=== PATIENT | male | born 1995 | race Caucasian/White ===

== ENCOUNTER 2024-10-25 06:41 | Emergency (ER) | payer MEDICAID ==
[~2024-10-25] VITALS: Ht 175.3 cm; Wt 69.0 kg
[2024-10-25 06:45] VITALS: TEMP 96.8
[2024-10-25] MEDS: normal saline 1000ML IV soln IVB ONE (07:00)
[2024-10-25] MEDS ORDERED: haloperidol lactate 5mg/ml inj IVH ONE (07:10)
[2024-10-25 07:16] LABS: BASOPHILS % (AUTO) 0.4 % (0-1); EOSINOPHILS % (AUTO) 0.1 % (0-6); HEMOGLOBIN 16.8 g/dl (14.0-17.9); LYMPHOCYTES # (AUTO) 1.5 X10'3 (1.1-4.8); MEAN CORPUSCULAR HEMOGLOBIN 28.6 PG (27.0-31.0); MEAN CORPUSCULAR VOLUME 81.8 FL (78-98); MEAN PLATELET VOLUME 7.1 FL (7.4-10.4); MONOCYTES % (AUTO) 13.5 % (2-12); NEUTROPHILS # (AUTO) 5.2 X10'3 (1.8-7.7); PLATELET COUNT 545 X10'3 (140-440); RED BLOOD COUNT 5.87 X10'6 (4.70-6.10); WHITE BLOOD COUNT 7.7 X10'3 (4.5-11.0)
[2024-10-25 07:51] LABS: ETHANOL < 10 MG/DL (<10); LIPASE 146 U/L (16-77); MAGNESIUM 3.1 MG/DL (1.5-2.4)
[2024-10-25 08:35] LABS: ALANINE AMINOTRANSFERASE 29 U/L (12-78); ALBUMIN 4.7 G/DL (3.4-5.0); ALBUMIN/GLOBULIN RATIO 1.1 (1.1-1.5); ALKALINE PHOSPHATASE 68 IU/L (46-116); ANION GAP 15 (8-16); ASPARTATE AMINO TRANSFERASE 15 U/L (10-37); BILIRUBIN,TOTAL 1.6 MG/DL (0.1-1.0); BLOOD UREA NITROGEN 31 MG/DL (7-18); BUN/CREATININE RATIO 28.2 (10.0-20.0); CALCIUM 9.4 MG/DL (8.5-10.1); CHLORIDE 94 MMOL/L (99-107); GLUCOSE 120 MG/DL (70-104); POTASSIUM 3.8 MMOL/L (3.5-5.1); SODIUM 133 MMOL/L (135-145); TOTAL CARBON DIOXIDE 24.2 MMOL/L (24-32); TOTAL PROTEIN 8.8 G/DL (6.4-8.2); eCRCL 96 ML/MIN; eGFR 79 ML/MIN
[2024-10-25] MEDS ORDERED: HYDROmorphone 1 mg/ml syringe IV ONE (08:50)
[2024-10-25] MEDS: LORazepam 2 mg/ml vial IV ONE (09:00)
[2024-10-25] MEDS: haloperidol lactate 5mg/ml inj IM ONE ×2 (09:54→10:44)
[2024-10-25] MEDS ORDERED: ONDA-243 PO (10:12)
[2024-10-25] MEDS ORDERED: DICY10CA88 PO (10:12)
[2024-10-25 10:21] LABS: BILIRUBIN,URINE NEGATIVE (Neg); CLARITY,URINE CLEAR (Clear); COLOR,URINE YELLOW (Yellow); GLUCOSE, URINE NEGATIVE (Neg); KETONES,URINE 40 mg/dl (Neg); LEUKOCYTE ESTERASE ,URINE NEGATIVE (Neg); NITRITES, URINE NEGATIVE (Neg); OCCULT BLOOD,URINE NEGATIVE (Neg); PH,URINE 7.5 (4.8-8.0); PROTEIN,URINE NEGATIVE (Neg); UROBILINOGEN,URINE 0.2 E.U/dL (0.2-1.0)
[2024-10-25 10:24] LABS: UA COLLECTION TYPE CLN CATCH MIDSTREAM; URINE HCG NEGATIVE
[2024-10-25 10:39] LABS: URINE AMPHETAMINE SCREEN NEGATIVE (Neg); URINE BARBITUATE SCREEN NEGATIVE (Neg); URINE BENZODIAZEPINES SCREEN NEGATIVE (Neg); URINE CANNABINOID SCREEN POSITIVE (Neg); URINE COCAINE SCREEN NEGATIVE (Neg); URINE METHADONE SCREEN NEGATIVE (Neg); URINE OPIATE SCREEN NEGATIVE (Neg); URINE PHENCYCLIDINE SCREEN NEGATIVE (Neg)
[2024-10-25] MEDS: dicyclomine 10 MG capsule PO ONE (10:46)
[2024-10-25 11:23] VITALS: BP 117/79; PULSE 98; RESP 18; O2SAT 98
== END 2024-10-25 11:25 | disposition home or self-care (01) ==
LOC: ER 06:42 → EDSEX 06:42 → ER 11:25
DX: A08.4 Viral intestinal infection, unspecified (principal); E86.0 Dehydration; J45.909 Unspecified asthma, uncomplicated; F12.90 Cannabis use, unspecified, uncomplicated
CPT/HCPCS: 36415; 80053; 80305; 80320; 81003; 81025; 83690; 83735; 85025; 96361; 96372; 96374; 99284; J1630; J2060; J7030; 99283

== ENCOUNTER 2025-02-22 06:06 | Emergency (ER) | payer MEDICAID, OTHER ==
[~2025-02-22] VITALS: Ht 175.3 cm; Wt 71.4 kg
[~2025-02-22 06:06] MED LIST: ONDA-243 PO
--- NOTE | 2025-02-22 07:08 | Physician Documentation ---
History of Present Illness ~ Chief Complaint: Nausea Stated Complaint: VOMITTING Time Seen by MD: 06:36 Mode of Arrival: POV HPI 29-year-old male presenting for continuous intractable nausea and vomiting that has been ongoing for the past four days. Patient states that he has had about 10-15 episodes of nonbloody emesis every day during this time. He also states that his abdomen has been very sore from all the vomiting. He denies any diarrhea but states that subjectively he has felt very cold and at times hot. Denies any constipation, chest pain or any other associated symptoms. He states that this is the 2nd time something like this has occurred. He had similar issues back in October that was treated and resolved that for several days. He reports that he smokes marijuana every day usually at the end of the day after work. He denies any exposure to anyone who has been sick but states that he does work as a bench grinder on the weekend so that he is unsure if they were sick people at the bar. Medication Reconciliation Allergies: Coded Allergies: No Known Allergies (Unverified , 02/22/25) Scheduled PRN ONDANSETRON ODT 4mg tablet (Ondansetron Odt), 1 TAB PO Q6H PRN PRN for nause a/vomiting Past Medical History Past Medical History: Asthma Past Surgical History: no surgical history Alcohol Use: Occasionally Drug Use: marijuana Review of Systems All Other Systems at this time: Reviewed and Negative Physical Exam Vital Signs: Temperature: 98.1, Source: Temporal, Heart Rate: 99, Respiratory Rate: 15, BP: 155/112, Pulse Oximetry: 97, Weight: 71.400 Oxygen Flow Rate: 0 Physical Exam I have reviewed the triage vitals. CONST: Well developed and well nourished. In no acute distress HENT: Head Atraumatic EYES: Pupils are equal, round and reactive to light. Normal conjunctiva NECK: Normal range of motion. Supple. CARDIO: Normal rate and regular rhythm. No murmurs, rubs, or gallops. S1, S2. PULM/CHEST: No respiratory distress. Lungs clear to auscultation. No wheeze ABD: Soft, minimally tender to palpation over the epigastrium. Nondistended. Bowel sounds normal. No guarding. : Exam deferred MSK: No edema. No deformity. NEURO: Alert and oriented to person, place and time. Moving all extremities SKIN: Warm and dry. PSYCH: Normal mood and affect. Good eye contact. Progress Results/Orders Results/Orders Orders - BRIDGER XIONG MD Ct Abdomen Pelvis (02/22/25 07:41) Completed Orders - BRIDGER XIONG MD Cbc/Diff (02/22/25 07:05) Lipase (02/22/25 07:05) CMP (02/22/25 07:05) Normal Saline 1000ml (Sodium Chloride 10 (02/22/25 07:05) Ondansetron Inj. (Zofran 4mg/2ml Vial) (02/22/25 07:05) Ct Abdomen Pelvis (02/22/25 07:41) Ua W/Microscopic, Cult If Ind (02/22/25 07:46) Normal Saline 1000ml (Sodium Chloride 10 (02/22/25 09:05) Metoclopramide Inj (Reglan Inj) (02/22/25 09:05) Medications Received in ER Medications (Trade) Dose Ordered Sig/Deandre Route PRN Reason Start Time Stop Time Status Last Admin Dose Admin Sodium Chloride 1,000 ml @ 1,000 mls/hr ONCE ONCE IV 02/22/25 07:05 02/22/25 08:04 DC 02/22/25 07:48 1,000 MLS/HR (Zofran 4mg/2ml vial) 4 mg ONCE ONCE IV 02/22/25 07:05 02/22/25 07:07 DC 02/22/25 07:48 4 MG Sodium Chloride 1,000 ml @ 1,000 mls/hr ONCE ONCE IV 02/22/25 09:05 02/22/25 10:04 DC 02/22/25 09:11 1,000 MLS/HR (Reglan inj) 10 mg ONCE ONCE IV 02/22/25 09:05 02/22/25 09:06 DC 02/22/25 09:11 10 MG Vital Signs 02/22/25 02/22/25 02/22/25 06:11 06:44 07:53 Temp 98.1 98.1 Pulse 99 77 Resp 16 15 18 B/P (MAP) 155/112 159/104 (122) Pulse Ox 97 99 O2 Flow Rate 0 0 Laboratory Tests Test 02/22/25 07:12 5/1/25 07:46 White Blood Count 10.4 Red Blood Count 5.73 Hemoglobin 16.3 Hematocrit 47.4 Mean Corpuscular Volume 82.7 Mean Corpuscular Hemoglobin 28.5 Mean Corpuscular Hemoglobin Concent 34.5 Red Cell Distribution Width 13.1 Platelet Count 438 Mean Platelet Volume 7.1 L Neutrophils (%) (Auto) 69.8 Lymphocytes (%) (Auto) 20.8 L Monocytes (%) (Auto) 8.7 Eosinophils (%) (Auto) 0.5 Basophils (%) (Auto) 0.2 Neutrophils # (Auto) 7.3 Lymphocytes # (Auto) 2.2 Monocytes # (Auto) 0.9 Eosinophils # (Auto) 0.1 Basophils # (Auto) 0.0 CBC Comment Sodium Level 140 Potassium Level 3.9 Chloride Level 102 Carbon Dioxide Level 24.5 Anion Gap 14 Blood Urea Nitrogen 18 Creatinine 0.96 Estimated GFR/1.73 m2 > 90 BUN/Creatinine Ratio 18.8 Glucose Level 140 H Calcium Level 9.6 Total Bilirubin 0.6 Aspartate Amino Transf (AST/SGOT) 28 Alanine Aminotransferase (ALT/SGPT) 55 Alkaline Phosphatase 76 Total Protein 8.5 H Albumin 5.2 H Globulin 3.3 Albumin/Globulin Ratio 1.6 H Lipase 19 Chemistry Comments Urine Specimen Description Non-specified Urine Color Yellow Urine Clarity Clear Urine pH 7.0 Urine Specific [place] 1.020 Urine Protein 100 H Urine Glucose (UA) Negative Urine Ketones 15 H Urine Occult Blood Trace-intact Urine Nitrite Negative Urine Bilirubin Negative Urine Urobilinogen 0.2 Urine Leukocyte Esterase Negative Urine RBC 3-10 Urine WBC 0-4 Urine Squamous Epithelial Cells None seen Urine Bacteria None seen Urine Mucus Few Urine Culture Indicated Not ind Volume Urine Centrifuged 10 ml Urine Comment EKG/XRAY/CT/US/VASC/MRI CT : Impression TECHNIQUE: Axial CT images of the abdomen and pelvis were obtained without IV contrast. Coronal and sagittal reformatted images were obtained, reviewed, and stored. Evaluation of the parenchymal organs is limited without IV contrast. Evaluation of the bowel and mesentery is limited without oral contrast. All CT scans at this medical facility are performed using dose modulation techniques as appropriate to a performed exam including the following: Automated exposure control was utilized; adjustment of the MA and/or KV according to patient size; and use of iterative reconstruction technique. CTDIvol = 14.71 mGy DLP = 663.39 mGy-cm COMPARISON: None FINDINGS: Lung bases: Lung bases are clear. Liver: Grossly unremarkable in its noncontrast enhanced appearance. No abnormal density or focal lesion identified. Biliary: No calcified gallstones or biliary ductal dilatation. Spleen: Unremarkable. Pancreas: Grossly unremarkable in its noncontrast enhanced appearance. Adrenal glands: Unremarkable. No mass. Kidneys: No hydronephrosis. No renal or ureteral calculi. Aorta/Vascular: No aneurysm or significant calcification. Retroperitoneum: No mass or lymphadenopathy. Bowel/mesentery: Nonspecific nondilated fluid-filled small bowel loops. No small bowel obstruction. Appendix is visualized and appears unremarkable. No free air or free fluid. Small subcentimeter mesenteric lymph nodes in the right lower quadrant. Pelvic organs: Grossly unremarkable. Bladder: Grossly unremarkable. Abdominal wall: No mass or hernia. Bones: No acute fracture or suspicious intraosseous lesion. IMPRESSION: 1. Normal-appearing appendix. 2. Nonspecific nondilated fluid-filled small bowel loops. Findings may be seen with ileus or enteritis in the appropriate clinical setting. No small bowel obstruction. 3. Small subcentimeter mesenteric lymph nodes in the right lower quadrant, may be 4. Reactive or seen with mesenteric adenitis in the appropriate clinical setting. Additional nonacute findings as described above. Electronically Signed by:BRENT CHILEL DO Date & Time: 02/22/25 0812 Medical Decision Making Additional Comments 29-year-old male presenting with gastroenteritis. Symptoms are likely viral in nature with some possibility of superimposed cannabis induced hyperemesis. The patient was medicated with 2 L of IV normal saline as well as 4 mg IV Zofran and 10 mg of IV Reglan with good improvement of symptoms. CT of the abdomen and pelvis showed no bowel obstruction but did indicate likely enteritis. Patient was markedly improved after medication was given. I advised the patient to cut back on his marijuana use. Also advised him to drink plenty of fluids. He is safe and stable for discharge home at this time as he looks well and his vitals are normal. I will prescribe him Zofran to take as needed for the nausea. Follow up with PCP and return to the ED with any acutely worsening symptoms. Departure Disposition: 01 HOME / SELF CARE / HOMELESS Impression: Primary Impression: Viral gastroenteritis Condition: Improved Discharge Instructions: Nausea and Vomiting, Adult, [id number] Additional Instructions: Take medication as prescribed for nausea as needed. Drink plenty of fluids and monitor symptoms for improvement and resolution. Cut back on marijuana use. Follow up with PCP and return to the ED with any acutely worsening symptoms. Referrals: NO PRIMARY CARE PROVIDER (PCP) BRIDGER XIONG MD February 22, 2025 07:08
[2025-02-22 07:36] LABS: BASOPHILS % (AUTO) 0.2 % (0-1); EOSINOPHILS # (AUTO) 0.1 X10'3 (0-0.9); EOSINOPHILS % (AUTO) 0.5 % (0-6); HEMATOCRIT 47.4 % (42.0-52.0); HEMOGLOBIN 16.3 g/dl (14.0-17.9); LYMPHOCYTES # (AUTO) 2.2 X10'3 (1.1-4.8); LYMPHOCYTES % (AUTO) 20.8 % (21-51); MEAN CORPUSCULAR HEMOGLOBIN 28.5 PG (27.0-31.0); MEAN CORPUSCULAR HGB CONC 34.5 g/dL (33.0-36.5); MEAN CORPUSCULAR VOLUME 82.7 FL (78-98); MEAN PLATELET VOLUME 7.1 FL (7.4-10.4); MONOCYTES # (AUTO) 0.9 X10'3 (0-0.9); MONOCYTES % (AUTO) 8.7 % (2-12); NEUTROPHILS # (AUTO) 7.3 X10'3 (1.8-7.7); NEUTROPHILS % (AUTO) 69.8 % (42-75); PLATELET COUNT 438 X10'3 (140-440); RED BLOOD COUNT 5.73 X10'6 (4.70-6.10); RED CELL DISTRIBUTION WIDTH 13.1 % (11.5-14.5); WHITE BLOOD COUNT 10.4 X10'3 (4.5-11.0)
[2025-02-22 07:38] LABS: ALANINE AMINOTRANSFERASE 55 U/L (12-78); ALBUMIN 5.2 G/DL (3.4-5.0); ALBUMIN/GLOBULIN RATIO 1.6 (1.1-1.5); ALKALINE PHOSPHATASE 76 IU/L (46-116); ANION GAP 14 (8-16); ASPARTATE AMINO TRANSFERASE 28 U/L (10-37); BILIRUBIN,TOTAL 0.6 MG/DL (0.1-1.0); BLOOD UREA NITROGEN 18 MG/DL (7-18); BUN/CREATININE RATIO 18.8 (10.0-20.0); CALCIUM 9.6 MG/DL (8.5-10.1); CHLORIDE 102 MMOL/L (99-107); CREATININE 0.96 MG/DL (0.60-1.10); GLUCOSE 140 MG/DL (70-104); LIPASE 19 U/L (16-77); POTASSIUM 3.9 MMOL/L (3.5-5.1); SODIUM 140 MMOL/L (135-145); TOTAL CARBON DIOXIDE 24.5 MMOL/L (24-32); TOTAL PROTEIN 8.5 G/DL (6.4-8.2); eCRCL 113 ML/MIN; eGFR > 90 ML/MIN
[2025-02-22] MEDS: ondansetron/PF 4mg/2ml inj IV ONE (07:48)
[2025-02-22] MEDS: normal saline 1000ml 1,000 ML IV ONE ×2 (07:48→09:11)
[2025-02-22 08:05] LABS: BILIRUBIN,URINE NEGATIVE (Neg); CLARITY,URINE CLEAR (Clear); COLOR,URINE YELLOW (Yellow); GLUCOSE, URINE NEGATIVE (Neg); KETONES,URINE 15 mg/dl (Neg); LEUKOCYTE ESTERASE ,URINE NEGATIVE (Neg); NITRITES, URINE NEGATIVE (Neg); OCCULT BLOOD,URINE TRACE-INTACT (Neg); PROTEIN,URINE 100 mg/dl (Neg); UROBILINOGEN,URINE 0.2 E.U/dL (0.2-1.0)
--- NOTE | 2025-02-22 08:14 | RADIOLOGY REPORT ---
CLINICAL INFORMATION: 29 years old, Male; intractable vomiting. TECHNIQUE: Axial CT images of the abdomen and pelvis were obtained without IV contrast. Coronal and s agittal reformatted images were obtained, reviewed, and stored. Evaluation of the parenchymal organs is limited without IV contrast. Evaluation of the bowel and mesentery is limited without oral contras t. All CT scans at this medical facility are performed using dose modulation techniques as appropriat e to a performed exam including the following: Automated exposure control was utilized; adjustment of the MA and/or KV according to patient size; and use of iterative reconstruction technique. CTDIvol = 14.71 mGy DLP = 663.39 mGy-cm COMPARISON: None FINDINGS: Lung bases: Lung bases are clear. Liver: Grossly unremarkable in its noncontrast enhanced appearance. No abnormal density or focal lesi on identified. Biliary: No calcified gallstones or biliary ductal dilatation. Spleen: Unremarkable. Pancreas: Grossly unremarkable in its noncontrast enhanced appearance. Adrenal glands: Unremarkable. No mass. Kidneys: No hydronephrosis. No renal or ureteral calculi. Aorta/Vascular: No aneurysm or significant calcification. Retroperitoneum: No mass or lymphadenopathy. Bowel/mesentery: Nonspecific nondilated fluid-filled small bowel loops. No small bowel obstruction. A ppendix is visualized and appears unremarkable. No free air or free fluid. Small subcentimeter mesen teric lymph nodes in the right lower quadrant. Pelvic organs: Grossly unremarkable. Bladder: Grossly unremarkable. Abdominal wall: No mass or hernia. Bones: No acute fracture or suspicious intraosseous lesion. IMPRESSION: 1. Normal-appearing appendix. 2. Nonspecific nondilated fluid-filled small bowel loops. Findings may be seen with ileus or enteriti s in the appropriate clinical setting. No small bowel obstruction. 3. Small subcentimeter mesenteric lymph nodes in the right lower quadrant, may be 4. Reactive or seen with mesenteric adenitis in the appropriate clinical setting. Additional nonacute findings as described above.
[2025-02-22 08:15] LABS: UA COLLECTION TYPE NON-SPECIFIED
[2025-02-22 08:17] LABS: BACTERIA,URINE NONE SEEN /HPF (Neg); MUCUS STRANDS FEW /LPF (Neg); SQUAMOUS EPITHELIAL CELL,UR NONE SEEN /LPF (FEW); WBC,URINE 0-4 /HPF (0-4)
[2025-02-22] MEDS: metoclopramide 5 mg/ml inj IV ONE (09:11)
[2025-02-22 10:40] VITALS: BP 140/115; PULSE 68; RESP 18; TEMP 98.1; O2SAT 99
== END 2025-02-22 10:42 | disposition home or self-care (01) ==
LOC: ER 06:06
DX: A08.4 Viral intestinal infection, unspecified (principal); J45.909 Unspecified asthma, uncomplicated; F12.90 Cannabis use, unspecified, uncomplicated; Z72.89 Other problems related to lifestyle
CPT/HCPCS: 36415; 74176; 80053; 81001; 83690; 85025; 96361; 96374; 96375; 99285; J2405; J2765; J7030